=== PATIENT | female | born 1950 | race Caucasian/White ===

== ENCOUNTER → 2016-05-12 | Outpatient (CLI) | payer OTHER | LOC: FIMAGING 13:01 | PROVIDERS: ATTEND Family Medicine | DX: K80.20 Calculus of gallbladder without cholecystitis without obstruction (principal) ==

== ENCOUNTER 2016-09-09 11:19 | Emergency (ER) | payer OTHER ==
[2016-09-09 11:36] VITALS: O2SAT 97
[2016-09-09] MEDS ORDERED: ASPIRIN 81 MG CHEWABLE TAB PO ONE (11:42)
--- NOTE | 2016-09-09 11:42 | EDPHY ---
H & P Time Seen by Provider: 09/09/16 11:23 HPI/ROS: This patient complains of left leg pain swelling and slight discoloration that concerns her for DVT. Over the past 2 weeks she started noticing achiness to the left medial calf with gradual onset of some swelling slight discoloration. She states the pain is mild at 2/10 intensity and states that it is worse when she standing for periods of time. 1 week prior to the onset of symptoms she had air travel to [place] and back. 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 No other trauma. She has never had this achy feeling in her calf before. ROS: Constitutional: No fevers HEENT: No complaints Pulmonary: No pleuritic pain or dyspnea Cardiovascular: No chest pain. No right leg swelling or ankle edema Integumentary: Slight ecchymotic discoloration to the affected calf no other skin lesions. Musculoskeletal: No recent trauma 7 point ROS is otherwise negative Past Medical/Surgical History: Positive for factor 5 Leiden. No prior DVT or PEs Her family history is notable for a father who had multiple pulmonary embolisms an for a daughter who had DVT this is why she was tested and came up positive for factor 5 Leiden Smoking Status: Former smoker Physical Exam: Physical Exam Vital signs are normal. General: No acute distress HEENT: Atraumatic. Eyes: Pupils equal and react to light. Extraocular motions are intact. Lungs: No respiratory distress. Cardiac: Regular rate and rhythm with no murmur gallop rub. She maintains 2+ symmetric dorsalis pedis and posterior tibialis pulses bilaterally and symmetric 2+ popliteal pulses bilaterally. Extremities: Atraumatic normal except for left lower extremity Left lower extremity: Patient has mild medial calf swelling ecchymosis and tenderness. Homans is negative. Knee exam is normal on the affected side. Skin: No rash or pallor. Neuro: Alert and oriented x3 with no sensorimotor deficits. Initial differential diagnosis: DVT, calf muscle strain, superficial venous thrombosis, varicose veins, Constitutional: Initial Vital Signs Temperature (C) 37.0 C 09/09/16 11:30 Heart Rate 86 09/09/16 11:30 Respiratory Rate 18 09/09/16 11:30 Blood Pressure 152/79 H 09/09/16 11:30 O2 Sat (%) 97 09/09/16 11:30 O2 Delivery Mode Room Air Allergies/Adverse Reactions: codeine Allergy (Verified 09/09/16 11:29) gabapentin Allergy (Verified 09/09/16 11:29) tramadol [From Ultram] Allergy (Verified 09/09/16 11:29) Home Medications: Medication Instructions Recorded Hydrocodon-Acetaminophen 5-325 09/09/16 MDM/Departure - MDM Imaging Results: Imaging Impressions Extremity Venous Study 09/09/16 11:36 Impression: No deep venous thrombosis in the left lower extremity. Findings discussed with Sal Collins M.D. at 12:13 hour, 09/09/2016. Imaging: Discussed imaging studies w/ hospice nurse practitioner Radiologist Medications Given: Discontinued Medications Aspirin (Aspirin) 324 mg PO EDNOW ONE Stop: 09/09/16 11:43 Last Admin: 09/09/16 11:47 Dose: 324 mg ED Course/Re-evaluation: Aspirin p. o. I discussed the patient's negative Doppler ultrasound study with Dr. Garg. Discussion: Patient came in with moderate risk for DVT given background history of factor 5 Leiden and air travel in the preceding week with minimal physical exam findings warranting Doppler ultrasound rule out DVT. We accomplish this with a negative Doppler. I counseled this patient regarding her leg pain that I think is muscular in origin given her prolonged time on her feet with her new job. I demonstrated some stretches for her calf. She will use Tylenol and ibuprofen for discomfort if needed follow up with primary care physician for any ongoing symptoms persist beyond the next 5 -7 days. - Depart Disposition: Home, Routine, Self-Care Clinical Impression: Pain of left calf Condition: Good Instructions: Muscle Strain (ED) Additional Instructions: Diagnosis: Calf pain Your ultrasound shows no DVT today. He is likely the have a strain from being on her feet more than usual. Plan: Ibuprofen and/or Tylenol for discomfort as needed, gentle stretching each day as directed Consider an Dale wrap for comfort Follow up with primary care physician for any ongoing symptoms that persist beyond the next week Return for any significant worsening despite the treatment plan. Referrals: Cee Rodrigues MD [Primary Care Provider] - As per Instructions
[2016-09-09 11:52] LABS: % IMMATURE GRANULYOCYTES 0.2 % (0.0-1.1); ABSOLUTE IMMATURE GRANULOCYTES 0.01 10^3/uL (0.00-0.10); ADD DIFF? NO; ADD MORPH? NO; ADD SCAN? NO; ATYPICAL LYMPHOCYTE FLAG 20 (0-99); FRAGMENT RBC FLAG 0 (0-99); HEMATOCRIT 40.2 % (38.0-47.0); HEMOGLOBIN 13.7 g/dL (12.6-16.3); LEFT SHIFT FLG 0 (0-99); LIPEMIA HEMOLYSIS FLAG 90 (0-99); MEAN CELL HEMOGLOBIN 31.6 pg (27.9-34.1); MEAN CELL HEMOGLOBIN CONCENTR. 34.1 g/dL (32.4-36.7); MEAN CELL VOLUME 92.6 fL (81.5-99.8); MEAN PLATELET VOLUME 9.2 fL (8.7-11.7); PLATELET CLUMPS FLAG 0 (0-99); PLATELET COUNT 231 10^3/uL (150-400); RED BLOOD CELL COUNT 4.34 10^6/uL (4.18-5.33); RED CELL DISTRIBUTION WIDTH 12.2 % (11.5-15.2)
[2016-09-09 12:27] VITALS: BP 134/86; PULSE 80; RESP 16; TEMP 98.1
== END 2016-09-09 12:27 | disposition home or self-care (01) ==
LOC: CED 11:19
DX: M79.605 Pain in left leg (principal); Z87.891 Personal history of nicotine dependence
CPT/HCPCS: 85025-PO; 93971-PO

== ENCOUNTER → 2016-11-16 | Outpatient (CLI) | payer OTHER | LOC: FIMAGING 07:14 | PROVIDERS: ATTEND Family Medicine | DX: M51.36 Other intervertebral disc degeneration, lumbar region (principal); M46.96 Unspecified inflammatory spondylopathy, lumbar region ==